=== PATIENT | male | born 1955 | race Caucasian/White ===

== ENCOUNTER 2017-01-02 02:14 | Emergency (ER) | payer BC ==
[2017-01-02 02:24] VITALS: BP 156/95
--- NOTE | 2017-01-02 02:37 | EDM.PDOC ---
ED HPI GENERAL MEDICAL PROBLEM - General Chief Complaint: Respiratory Problem Stated Complaint: COUGH/CONGESTION Time Seen by Provider: 01/02/17 02:22 Source of Information: Reports: Patient, RN Notes Reviewed History Limitations: Reports: No Limitations - History of Present Illness INITIAL COMMENTS - FREE TEXT/NARRATIVE: The patient states that he has had a dry cough, as when he is upright, but made worse when he is supine, for the past 8-9 days. No associated dyspnea or wheeze. He states that he coughed so hard tonight that he vomited. He also reports a sore throat for the past 8 or 9 days. No recent fever. No recent chest pain or palpitations. No recent constipation, diarrhea, or urinary symptoms. He states that he has been taking [id number] cough drops, and cough and cold remedies, without relief. He states that he had similar symptoms about a year ago, and was diagnosed with pneumonia. The patient does not have a PCP. Throat Pain Score (Numeric/FACES): 5 - Related Data Allergies Allergy/AdvReac Type Severity Reaction Status Date / Time No Known Allergies Allergy Verified 01/02/17 02:20 Home Meds: Home Meds Codeine/Promethazine [Phenergan with Codeine] 5 ml PO BEDTIME PRN #30 cup [Rx] Past Medical History Endocrine/Metabolic History: Reports: Obesity/BMI 30+ - Past Surgical History HEENT Surgical History: Reports: Tonsillectomy Social & Family History - Tobacco Use Smoking Status *Q: Never Smoker Tobacco Use Within Last Twelve Months: Smokeless Tobacco Tobacco Use Comment: Chews 1 can per week - Alcohol Use Alcohol Use History: Yes Alcohol Use Frequency: Rarely - Recreational Drug Use Recreational Drug Use: No - Living Situation & Occupation Living situation: Reports: , with Spouse Occupation: Employed ([employer]) ED ROS GENERAL - Review of Systems Review Of Systems: See Below Constitutional: Reports: No Symptoms HEENT: Reports: No Symptoms Respiratory: Reports: No Symptoms Cardiovascular: Reports: No Symptoms Endocrine: Reports: No Symptoms GI/Abdominal: Reports: No Symptoms : Reports: No Symptoms Musculoskeletal: Reports: No Symptoms Skin: Reports: No Symptoms Neurological: Reports: No Symptoms Psychiatric: Reports: No Symptoms Hematologic/Lymphatic: Reports: No Symptoms Immunologic: Reports: No Symptoms ED EXAM, GENERAL - Physical Exam Exam: See Below Exam Limited By: No Limitations General Appearance: Alert, WD/WN, No Apparent Distress Eye Exam: Bilateral Eye: Normal Inspection Ears: Normal External Exam, Normal Canal, Hearing Grossly Normal, Normal TMs Ear Exam: Bilateral Ear: Auricle Normal, Canal Normal, TM normal Nose: Normal Inspection, No Blood, Other (Bilateral nasal mucosal edema) Throat/Mouth: Normal Inspection, Normal Lips, Normal Teeth, Normal Gums, Normal Voice, No Airway Compromise, Other (Posterior pharyngeal streaking, consistent with postnasal drip) Head: Atraumatic, Normocephalic Neck: Normal Inspection, Supple, Non-Tender, Full Range of Motion. No: Lymphadenopathy (L), Lymphadenopathy (R) Respiratory/Chest: No Respiratory Distress, Lungs Clear, Normal Breath Sounds, No Accessory Muscle Use Cardiovascular: Normal Peripheral Pulses, Regular Rate, Rhythm, No Gallop, No JVD, No Murmur, No Rub Peripheral Pulses: 4+: Radial (L), Radial (R) GI/Abdominal: Normal Bowel Sounds, Soft, Non-Tender, No Organomegaly, No Distention, No Abnormal Bruit, No Mass, Other (Obese) (Male) Exam: Deferred Rectal (Males) Exam: Deferred Back Exam: Normal Inspection, Full Range of Motion, NT Extremities: Normal Inspection, Normal Range of Motion, No Pedal Edema, Normal Capillary Refill Neurological: Alert, Oriented, Normal Cognition, No Motor/Sensory Deficits Psychiatric: Normal Affect Skin Exam: Warm, Dry, Intact, Normal Color, No Rash Lymphatic: No Adenopathy Course - Vital Signs Last Recorded V/S: Last Vital Signs Temp 36.3 C 01/02/17 02:20 Pulse 99 01/02/17 02:20 Resp 22 H 01/02/17 02:20 BP 156/95 H 01/02/17 02:20 Pulse Ox 96 01/02/17 02:20 - Orders/Labs/Meds Orders: Active Orders 24 hr Category Date Time Status Chest 2V [CR] Stat Exams 01/02/17 02:31 Taken Labs: Laboratory Tests 01/02/17 01/02/17 01/02/17 Range/Units 02:46 02:46 02:46 WBC 11.38 H (4.23-9.07) K/mm3 RBC 5.73 (4.63-6.08) M/mm3 Hgb 16.5 (13.7-17.5) gm/L Hct 49.5 (40.1-51.0) % MCV 86.4 (79.0-92.2) fl MCH 28.8 (25.7-32.2) pg MCHC 33.3 (32.2-35.5) g/dl RDW Std Deviation 45.7 H (35.1-43.9) fL Plt Count 274 (163-337) K/mm3 MPV 9.6 (9.4-12.3) fl Neutrophils % (Manual) 64 H (40-60) % Band Neutrophils % 1 (0-10) % Lymphocytes % (Manual) 23 (20-40) % Atypical Lymphs % 0 % Monocytes % (Manual) 5 (2-10) % Eosinophils % (Manual) 7 (0.8-7.0) % Basophils % (Manual) 0 L (0.2-1.2) Platelet Estimate Adequate RBC Morph Comment Normal PT 10.6 (8.0-13.0) SECONDS INR 0.97 APTT 28 (22-36) SECONDS D-Dimer, Quantitative 0.33 (0.19-0.59) mg/L Sodium 138 (136-145) mEq/L Potassium 4.0 (3.5-5.1) mEq/L Chloride 104 (98-107) mEq/L Carbon Dioxide 26 (21-32) mEq/L Anion Gap 12.0 (5-15) BUN 16 (7-18) mg/dL Creatinine 1.2 (0.7-1.3) mg/dL Est Cr Clr Drug Dosing 59.07 mL/min Estimated GFR (MDRD) > 60 (>60) mL/min BUN/Creatinine Ratio 13.3 L (14-18) Glucose 127 H (74-106) mg/dL Calcium 8.4 L (8.5-10.1) mg/dL Total Bilirubin 0.6 (0.2-1.0) mg/dL AST 24 (15-37) U/L ALT 38 (16-63) U/L Alkaline Phosphatase 99 (46-116) U/L C-Reactive Protein 2.2 H* (<1.0) mg/dL Total Protein 7.5 (6.4-8.2) g/dl Albumin 3.3 L (3.4-5.0) g/dl Globulin 4.2 gm/dL Albumin/Globulin Ratio 0.8 L (1-2) - Radiology Interpretation Free Text/Narrative:: Two-view chest radiograph reviewed. Cardiac silhouette is within normal limits. No pulmonary vascular congestion. No pleural effusions. No focal infiltrate. No pneumothorax. Right lung field appears to be slightly more opaque than the left, concerning for [place] sign. Formal read per the Radiologist pending. - Re-Assessments/Exams Free Text/Narrative Re-Assessment/Exam: 01/02/17 03:19 No infiltrates seen on the chest radiograph, however, the right lung field appears to be slightly more opaque than the left, concerning for [place] sign. I have therefore ordered a D-dimer. 01/02/17 03:44 Test results discussed with the patient. Today's workup is entirely unremarkable, consistent with a viral URI with cough. I will prescribe a codeine cough syrup which she can take at bedtime. Departure - Departure Time of Disposition: 03:46 Disposition: Home, Self-Care 01 Condition: good Clinical Impression: Viral URI with cough - Discharge Information Prescriptions: Codeine/Promethazine [Phenergan with Codeine] 5 ml PO BEDTIME PRN #30 cup PRN Reason: Cough Referrals: PCP,None [Primary Care Provider] - Makenna Guerrero PA-C [Physician Wire Worker] - Forms: ED Department Discharge Additional Instructions: You were seen in the emergency room for a cough and sore throat. Workup in the ER included blood work and a chest x-ray. Your entire workup was unremarkable, and consistent with a viral upper respiratory infection with postnasal drip causing your cough. You have been prescribed the cough medicine codeine/promethazine. Take 5 mL at bedtime. Do not drive or operate heavy machinery for 12 hours after taking this medicine. Followup with Makenna Guerrero in the clinic as needed. If any other problems, please do not hesitate to return to the ER. - My Orders Last 24 Hours: My Active Orders 01/02/17 02:31 Chest 2V [CR] Stat - Assessment/Plan Last 24 Hours: My Active Orders 01/02/17 02:31 Chest 2V [CR] Stat
--- NOTE | 2017-01-02 07:04 | CR ---
Chest: Two views of the chest were obtained. Comparison: No previous study. Scoliosis is present within the spine. Heart size is normal. Lungs are clear with no acute infiltrates. Scattered degenerative spurring is noted throughout the spine. Kyphosis is seen centered at the thoracolumbar junction. Impression: 1. Incidental findings. Nothing acute is identified on two-view chest x-ray. Diagnostic code #2
== END 2017-01-02 04:05 | disposition home or self-care (01) ==
LOC: JD.ED 02:14
DX: J06.9 Acute upper respiratory infection, unspecified (principal); E66.9 Obesity, unspecified; Z98.890 Other specified postprocedural states
CPT/HCPCS: 36415; 71020; 71020-26; 80053; 85025; 85379; 85610; 85730; 86140; 99283; 99284